=== PATIENT | female | born 1975 ===

== ENCOUNTER 2020-12-29 19:55 | Emergency (ER) | payer MEDICAID ==
[~2020-12-29] VITALS: Ht 160 cm; Wt 68.0 kg
[2020-12-29 19:55] VITALS: BP 117/76
[2020-12-29] MEDS ORDERED: SODIUM CHLORIDE 0.9% 500 ML IV ONE (20:30)
== END 2020-12-29 21:05 | disposition left against medical advice (07) ==
LOC: EDBD 19:55 → ER 19:55
DX: R00.0 Tachycardia, unspecified (principal); F41.9 Anxiety disorder, unspecified; F17.210 Nicotine dependence, cigarettes, uncomplicated; Z85.038 Personal history of other malignant neoplasm of large intestine
CPT/HCPCS: 93005